=== PATIENT | male | born 1970 | race Caucasian/White ===

== ENCOUNTER 2020-08-03 13:34 | Emergency (ER) | payer OTHER, SELFPAY ==
[2020-08-03 13:42] VITALS: BP 129/65; PULSE 101; RESP 18; TEMP 37.3; O2SAT 96; BMI 28.3
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
--- NOTE | 2020-08-03 14:24 | PC.NURSE ---
patient tolerated pain well at this time. no acute distress noted. c-collar in place, tolerated well
[2020-08-03 15:38] VITALS: BP 111/85; PULSE 85; RESP 16; O2SAT 98
--- NOTE | 2020-08-03 15:39 | PC.NURSE ---
patient tolerated pain well at this time .
== END 2020-08-03 15:45 | disposition home or self-care (01) ==
PROVIDERS: Emergency Provider Physician Assistant; PCP Nurse Practitioner Family
DX: S16.1XXA Strain of muscle, fascia and tendon at neck level, initial encounter (principal); M54.5 Low back pain; V89.2XXA Person injured in unspecified motor-vehicle accident, traffic, initial encounter
CPT/HCPCS: 72040; 72072; 72100; 99283